=== PATIENT | male | born 1990 | race Caucasian/White ===

== ENCOUNTER 2016-06-05 21:26 | Emergency (ER) | payer OTHER ==
[~2016-06-05] VITALS: Ht 170.2 cm; Wt 80.5 kg
[~2016-06-05 21:26] MED LIST: BENZ1TAB7 PO; BUSP15TA3 PO; DISU250T5 PO; HYDR50CA3 PO; QUET200T58 PO; TRAZ-118 PO
[2016-06-05 21:44] VITALS: BP 141/91; PULSE 106; RESP 16; O2SAT 94
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
[2016-06-06 02:32] VITALS: BP 119/73; PULSE 94; RESP 16; O2SAT 95
[2016-06-06 03:24] VITALS: BP 122/73; PULSE 92; RESP 16; O2SAT 96
== END 2016-06-06 03:32 | disposition home or self-care (01) ==
LOC: SED 21:26
DX: F20.9 Schizophrenia, unspecified (principal); S61.511A Laceration without foreign body of right wrist, initial encounter; X78.9XXA Intentional self-harm by unspecified sharp object, initial encounter; Y92.9 Unspecified place or not applicable; Y93.89 Activity, other specified; Y99.8 Other external cause status; F10.920 Alcohol use, unspecified with intoxication, uncomplicated; F15.21 Other stimulant dependence, in remission; F17.200 Nicotine dependence, unspecified, uncomplicated; Z91.5 Personal history of self-harm; Z98.890 Other specified postprocedural states

== ENCOUNTER 2017-01-04 01:30 | Emergency (ER) | payer OTHER ==
[~2017-01-04] VITALS: Ht 172.7 cm; Wt 82.3 kg
[2017-01-04 01:36] VITALS: BP 124/78; PULSE 81; RESP 20; O2SAT 99
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
[2017-01-04] MEDS ORDERED: LORazepam 2 mg Tablet PO ONE (02:10)
[2017-01-04 10:01] VITALS: BP 144/99; PULSE 106; RESP 20
== END 2017-01-04 10:00 | disposition home or self-care (01) ==
LOC: SED 01:30
DX: F19.951 Other psychoactive substance use, unspecified with psychoactive substance-induced psychotic disorder with hallucinations (principal); F22 Delusional disorders; L02.414 Cutaneous abscess of left upper limb; F20.9 Schizophrenia, unspecified; F32.9 Major depressive disorder, single episode, unspecified; F17.200 Nicotine dependence, unspecified, uncomplicated; Z86.19 Personal history of other infectious and parasitic diseases